=== PATIENT | female | born 1970 | race Caucasian/White ===

== ENCOUNTER 2018-07-09 08:59 | Emergency (ER) | payer MEDICAID ==
[~2018-07-09] VITALS: Ht 167.6 cm; Wt 65.0 kg
[2018-07-09] MEDS ORDERED: MUPIROCIN CALCIUM 2% 22 GM OINTMENT TP ONE (10:00)
[2018-07-09 10:41] VITALS: BP 119/74
== END 2018-07-09 10:43 | disposition home or self-care (01) ==
LOC: EMS 09:00
DX: L01.00 Impetigo, unspecified (principal); F15.90 Other stimulant use, unspecified, uncomplicated; F17.210 Nicotine dependence, cigarettes, uncomplicated; Z88.8 Allergy status to other drugs, medicaments and biological substances
CPT/HCPCS: 99406